=== PATIENT | male | born 1950 | race Caucasian/White ===

== ENCOUNTER 2017-07-10 23:47 | Observation (INO) | payer OTHER ==
[~2017-07-10] VITALS: Ht 170.2 cm; Wt 70.3 kg
--- NOTE | 2017-07-10 23:52 | ED CARDIAC/CP/PALPITATIONS ---
History of Present Illness General Chief Complaint: Chest Pain Stated Complaint: BIBA CHEST PAIN Source: patient Exam Limitations: no limitations Vital Signs & Intake/Output Vital Signs & Intake/Output Vital Signs Date Time Temp Pulse Resp B/P B/P Pulse O2 O2 Flow FiO2 Mean Ox Delivery Rate 07/11 0248 98.5 90 18 113/68 95 Room Air 07/10 2358 98.5 81 18 118/82 94 Room Air ED Intake and Output 07/11 0000 07/10 1200 Intake Total Output Total Balance Patient 155 lb Weight Weight Reported by Patient Measurement Method Allergies Coded Allergies: No Known Allergies (07/10/17) Reconcile Medications Aspirin (Aspirin*) 81 MG TAB.CHEW 81 MG PO DAILY HEART HEALTH (Reported) Budesonide/Formoterol Fumarate (Symbicort 160-4.5 Mcg Inhaler) 160 MCG-4.5 MCG/ ACTUATION HFA.AER.AD 2 INH IH DAILY ASTHMA (Reported) Ezetimibe (Zetia) 10 MG TABLET 10 MG PO DAILY CHOLESTEROL (Reported) Hydrochlorothiazide 12.5 MG CAPSULE 12.5 MG PO DAILY HTN (Reported) Tamsulosin HCl (Flomax) 0.4 MG CAP.ER.24H 0.4 MG PO DAILY URINARY SYMPTOMS ( Reported) Valsartan 80 MG TABLET 80 MG PO DAILY HTN (Reported) Triage Nurses Notes Reviewed? yes Onset: Gradual Duration: week(s): Timing: recent history Quality/Severity: moderate Location: central Radiation: no radiation Activities at Onset: emotional stress Prior Chest Pain/Card Workup: "My doctor has said I have had a heart attack." Modifying Factors: Improves With: nitroglycerin. Nitro Today/Relief: 0.4 mg x 2, provided by EMS, moderate relief Aspirin Today: 325 mg x 1, provided by EMS Associated Symptoms: dizziness HPI: 66 yo gentleman h/o cva and coronary artery disease, presents with 5/10 chest tightness, exacerbated by an argument with his son sesar. His chest tightness was associated with dizziness, without radiation or syncopal symptoms. 911 called. [facility] gave him aspirin 324mg x1 and nitro x 2, which he reports nearly resolved his symptoms. He reports feeling mild chest tightness upon arrival. Past History Travel History Traveled to [place] past 21 day No Medical History Any Pertinent Medical History? see below for history Neurological: CVA Cardiovascular: CAD Surgical History Surgical History: none Psychosocial History What is your primary language Angolan Family History Hx Contributory? No Review of Systems Review of Systems Constitutional: Reports: no symptoms. EENTM: Reports: no symptoms. Respiratory: Reports: no symptoms. Cardiovascular: Reports: no symptoms. GI: Reports: no symptoms. Genitourinary: Reports: no symptoms. Musculoskeletal: Reports: no symptoms. Skin: Reports: no symptoms. Neurological/Psychological: Reports: no symptoms. Hematologic/Endocrine: Reports: no symptoms. Immunologic/Allergic: Reports: no symptoms. All Other Systems: Reviewed and Negative Physical Exam Physical Exam General Appearance: well developed/nourished, mild distress Head: atraumatic, normal appearance Eyes: Bilateral: normal appearance. Ears, Nose, Throat: normal pharynx, normal ENT inspection Neck: normal inspection, supple, full range of motion Respiratory: normal breath sounds, chest non-tender, no respiratory distress, lungs clear Cardiovascular: regular rate/rhythm Gastrointestinal: normal bowel sounds, soft, non-tender Back: normal inspection, normal range of motion Extremities: normal inspection, normal capillary refill, normal range of motion, no edema Neurologic/Psych: no motor/sensory deficits, awake, alert, oriented x 3 Skin: intact, normal color, warm/dry Core Measures ACS in differential dx? Yes CVA/TIA Diagnosis No Sepsis Present: No Sepsis Focused Exam Completed? No Progress Differential Diagnosis: AMI, unstable angina Plan of Care: Orders Procedure Date/time Status Heart Healthy Diet 07/11 B Active TROPONIN LEVEL 07/11 1200 Active EKG 07/11 1200 Active TROPONIN LEVEL 07/11 0600 Active EKG 07/11 0600 Active Pathway - chart 07/11 0232 Active ECHOCARDIOGRAM 07/11 0232 Active Patient Data 07/11 0215 Active Patient Data 07/11 0214 Active Saline Lock 07/[address] in observation 07/11 0210 Active Misc Message 07/11 0210 Active ED Holding Orders 07/11 0210 Active Vital Signs 07/11 0210 Active Code Status 07/11 0210 Active Intake & Output 07/11 0010 Active House Staff 07/11 UNK Active VTE Mechanical Prophylaxis 07/11 UNK Active Vital Signs 07/11 UNK Active TROPONIN LEVEL 07/10 2352 Complete LIPASE 07/10 2352 Complete HEPATIC FUNCTION PANEL 07/10 2352 Complete D-DIMER 07/10 2352 Complete CBC WITHOUT DIFFERENTIAL 02/19 2352 Complete BASIC METABOLIC PANEL 07/10 2351 Complete AMYLASE 07/10 2351 Complete EKG 07/10 2351 Active Current Medications Sig/Tete Start time Last Medication Dose Stop Time Status Admin Heparin Sodium 5,000 UNIT Q8 07/11 0600 UNVr (Porcine) Laboratory Tests 07/11/17 0025: Anion Gap 18 H, Estimated GFR > 60, BUN/Creatinine Ratio 28.6 H, Glucose 105 H, Calcium 9.0, Total Bilirubin 0.3, Direct Bilirubin 0.2, AST 36, ALT 42, Alkaline Phosphatase 91, Troponin I < 0.01, Total Protein 6.8, Albumin 4.1, Amylase 72, Lipase 102, D-Dimer High Sensitivty 224, CBC w Diff NO MAN DIFF REQ, RBC 4.20 L, MCV 94.0, MCH 32.0 H, MCHC 34.0, RDW 13.1, MPV 8.1, Gran % 51.1, Lymphocytes % 32.5, Monocytes % 11.5 H, Eosinophils % 4.1, Basophils % 0.8, Absolute Granulocytes 2.4, Absolute Lymphocytes 1.5, Absolute Monocytes 0.5, Absolute Eosinophils 0.2, Absolute Basophils 0 Diagnostic Imaging: Viewed by Me: Radiology Read. Discussed w/RAD: Radiology Read. CXR Impression: PATIENT: SHAAN ZIEGLER PRESENT AGE: 66 PATIENT ACCOUNT NO: [id number] : 51 LOCATION: [facility] ORDERING PHYSICIAN: Elie Jones MD SERVICE DATE: 07/11/17 EXAM TYPE: RAD - XRY-PORTABLE CHEST XRAY EXAMINATION: XR PORTABLE CHEST CLINICAL INFORMATION: Chest pain COMPARISON: 11/02/2008 TECHNIQUE: Portable frontal view of the chest was obtained. FINDINGS: Cardiac Loop recorder overlies the left hemithorax. The lungs are well expanded. There is no focal consolidation, edema, or effusion. No pneumothorax. The cardiomediastinal silhouette is within normal limits. No acute osseous abnormality. IMPRESSION: No acute pulmonary findings. DICTATED BY: Willem Fontaine MD DATE/TIME DICTATED:07/11/17100 CORE MAN:MARCIAL DATE/TIME TRANSCRIBED:07/11/17100 CONFIDENTIAL, DO NOT COPY WITHOUT APPROPRIATE AUTHORIZATION. <Electronically signed in Other Vendor System> SIGNED BY: Willem Fontaine MD 07/11/17 0105 Pre-Hospital EKG: normal axis, normal intervals, nonspecific ST T wave chg Initial ED EKG: normal axis, normal intervals, nonspecific ST T wave chg Departure Departure Disposition: STILL A PATIENT Condition: Stable Clinical Impression Primary Impression: Chest pain Referrals: Lloyd Decker MD,Joel Lr Departure Forms: Customer Survey General Discharge Information Observation Note Spoke With: Jess[facility] RODRIGUEZ PHD,[facility] Patient In: Non-ED OBS Care Area Rationale for Observation: My rational for observation is as follows . pt with nitro responsive chest pain with vascular history... merits serial trops /ekg, dr. schilling to evaluate in the morning. Critical Care Note Critical Care Note Critical Care Time: 30-74 min
[2017-07-11 00:58] LABS: ABSOLUTE BASOPHIL COUNT 0 /CUMM (0.0-0.2); ABSOLUTE EOSINOPHIL COUNT 0.2 /CUMM (0.0-0.7); ABSOLUTE GRANULOCYTE CT 2.4 /CUMM (1.4-6.5); ABSOLUTE LYMPH COUNT 1.5 /CUMM (1.2-3.4); ABSOLUTE MONOCYTE COUNT 0.5 /CUMM (0.10-0.60); BASOPHIL % 0.8 % (0.0-2.0); EOSINOPHIL % 4.1 % (0-5); GRANULOCYTE % 51.1 % (42.2-75.2); HEMATOCRIT 39.5 % (42-52); MEAN PLATELET VOLUME 8.1 FL (7.4-10.4); PLATELET COUNT 209 /CUMM (130-400); RBC DISTRIBUTION WIDTH 13.1 % (11.5-14.5); WHITE BLOOD CELL COUNT 4.8 /CUMM (4.8-10.8)
--- NOTE | 2017-07-11 01:05 | RADIOLOGY REPORT ---
EXAMINATION: XR PORTABLE CHEST CLINICAL INFORMATION: Chest pain COMPARISON: 11/02/2008 TECHNIQUE: Portable frontal view of the chest was obtained. FINDINGS: Cardiac Loop recorder overlies the left hemithorax. The lungs are well expanded. There is no focal consolidation, edema, or effusion. No pneumothorax. The cardiomediastinal silhouette is within normal limits. No acute osseous abnormality. IMPRESSION: No acute pulmonary findings.
--- NOTE | 2017-07-11 02:15 | History & Physical ---
Walter Davis MDapna 07/11/17 0215: General Information and HPI MD Statement: I have seen and personally examined SHAAN ZIEGLER and documented this H&P. The patient is a 66 year old M who presented with a patient stated chief complaint of [chest pain]. Source of Information: patient, family Exam Limitations: no limitations History of Present Illness: 66-year-old gentleman with past medical history of TIA, coronary artery disease, psoriasis, asthma, GERD came to [facility] with complaints of anxiety, chest pain with palpitation. Patient was in usual state of health until a week ago, started developing intermittent chest pain of 3 x 10 in severity radiating across his chest relieved by rest. This chest pain is also associated with shortness of breath and palpitation. He denied nausea, vomiting, syncope, fall, abdominal pain, weakness, fever, chills, sick contacts, orthopnea, platypnea, travel. Earlier tonight patient had argument with his son and eventually had to call 911. When the 911 came in. He was found to be very anxious and suggested him to go to ER. During the same time patient developed similar chest pain of 3 -4 x 10 in severity associated with palpitation and not relieved by rest. He denies left arm pain, jaw pain, nausea, vomiting, abdominal pain, hematuria, dysuria, fever, chills, upper respiratory symptoms, decreased urination, orthopnea, lower leg edema, fall, altered sensation, seizure-like episode. Patient has a loop monitor placed 5 years ago. This was replaced a year ago. Patient sees Dr. delarosa for his cardiology issues. Patient had a nitroglycerin patch and Ativan which helped with his chest pain. Patient has chronic cough which she relates to his GERD. No history of any increased salt intake/pedal edema. Allergies/Medications Allergies: Coded Allergies: No Known Allergies (07/10/17) Home Med list Alendronate Sodium 70 MG TABLET 1 TAB PO QFRI OSTEOPOROSIS (Reported) in the morning, at least 30 minutes before the first food, beverage, or medication of the day Aspirin (Aspirin*) 81 MG TAB.CHEW 81 MG PO DAILY HEART HEALTH (Reported) Atorvastatin Calcium 80 MG TABLET 1 TAB PO DAILY CHOLESTROL (Reported) Budesonide/Formoterol Fumarate (Symbicort 160-4.5 Mcg Inhaler) 160 MCG-4.5 MCG/ ACTUATION HFA.AER.AD 2 INH IH DAILY ASTHMA (Reported) Ezetimibe (Zetia) 10 MG TABLET 10 MG PO DAILY CHOLESTEROL (Reported) Hydrochlorothiazide 12.5 MG CAPSULE 12.5 MG PO DAILY HTN (Reported) Montelukast Sodium (Singulair) 10 MG TABLET 1 TAB PO DAILY ASTHMA (Reported) Tamsulosin HCl (Flomax) 0.4 MG CAP.ER.24H 0.4 MG PO DAILY URINARY SYMPTOMS ( Reported) Valsartan 80 MG TABLET 80 MG PO DAILY HTN (Reported) Compliance With Home Meds: GOOD Past History Travel History Traveled to [facility] past 21 day No Medical History Cardiovascular: CAD Respiratory: asthma Hepatic: NONE Renal: NONE Musculoskeletal: NONE Surgical History Surgical History: hernia repair-inguinal Past Family/Social History Family History Relations & Conditions if any MOTHER Relation not specified for: FHx: breast cancer Psychosocial History Where do you live? Home Who Do You Live With? spouse Services at Home: None Primary Language: Sammarinese ETOH Use: occasional use Illicit Drug Use: denies illicit drug use Functional Ability ADLs Independent: dressing, eating, toileting, bathing. Ambulation: independent IADLs Independent: shopping, housework, finances, food prep, telephone, transportation , medication admin. Review of Systems Review of Systems Constitutional: Reports: malaise. EENTM: Reports: no symptoms. Cardiovascular: Reports: chest pain, palpitations. Respiratory: Reports: short of breath. GI: Reports: no symptoms. Genitourinary: Reports: no symptoms. Musculoskeletal: Reports: no symptoms. Skin: Reports: no symptoms. Exam & Diagnostic Data Last 24 Hrs of Vital Signs/I&O Vital Signs Date Time Temp Pulse Resp B/P B/P Pulse O2 O2 Flow FiO2 Mean Ox Delivery Rate 07/11 0248 98.5 90 18 113/68 95 Room Air 07/10 2358 98.5 81 18 118/82 94 Room Air Intake & Output 07/11 0800 07/11 0000 07/10 1600 Intake Total 0 Output Total Balance 0 Intake, Oral 0 Patient 155 lb Weight Weight Reported by Patient Measurement Method Physical Exam General Appearance Alert, Oriented X3, Cooperative, No Acute Distress Skin No Rashes, No Breakdown, No Significant Lesion HEENT Atraumatic, PERRLA, EOMI Cardiovascular Regular Rate, Normal S1, Normal S2, No Murmurs Lungs Clear to Auscultation, Normal Air Movement Abdomen Soft, No Tenderness, No Hepatospenomegaly Neurological Normal Speech, Strength at 5/5 X4 Ext, Normal Tone, Sensation Intact Extremities No Edema Last 24 Hrs of Labs/Kalpesh: Laboratory Tests 07/11/17 0025: Anion Gap 18 H, Estimated GFR > 60, BUN/Creatinine Ratio 28.6 H, Glucose 105 H, Calcium 9.0, Total Bilirubin 0.3, Direct Bilirubin 0.2, AST 36, ALT 42, Alkaline Phosphatase 91, Troponin I < 0.01, Total Protein 6.8, Albumin 4.1, Amylase 72, Lipase 102, D-Dimer High Sensitivty 224, CBC w Diff NO MAN DIFF REQ, RBC 4.20 L, MCV 94.0, MCH 32.0 H, MCHC 34.0, RDW 13.1, MPV 8.1, Gran % 51.1, Lymphocytes % 32.5, Monocytes % 11.5 H, Eosinophils % 4.1, Basophils % 0.8, Absolute Granulocytes 2.4, Absolute Lymphocytes 1.5, Absolute Monocytes 0.5, Absolute Eosinophils 0.2, Absolute Basophils 0 Diagnostic Data EKG Results Sinus rhythm with a normal axis. Assessment/Plan Assessment: 66-year-old gentleman with past medical history of TIA, coronary artery disease, psoriasis, asthma, GERD came to [facility] ER with complaints of anxiety, chest pain with palpitation. Admission vitals Temperature 98.5, pulse rate 90, respiratory rate 18, blood pressure 113/68, saturation 94 at room air Admission labs WBC 4.8, hemoglobin 13.4, platelets 209, sodium 146, potassium 3.6, BUNs 20 creatinine 0.7 Imaging chest x-ray IMPRESSION: No acute pulmonary findings. ED treatment Tylenol 650 mg once, Ativan 0.5 mg by mouth, Nitro-Bid 1 g topical. Assessment and plan 1. Chest pain-rule out ACS We will place him under observation in telemetry. Serial troponins and EKG to rule out acute coronary syndrome. He is course 2 in DONTAE. Cardiology consult and echocardiogram in a.m. Continue all his home medication. 2. GERD Continue PPI 3. Hypertension Continue losartan and hydrochlorothiazide his home dose. 4. Osteoporosis Continue AlENDRONATE 70 mg once every week 5. Benign prostatitic hypertrophy Continue Flomax. 6. Asthma continue Symbicort and Singulair Diet-heart healthy diet Code-full code DVT prophylaxis-heparin subcutaneous As Ranked By This Provider Problem List: 1. Chest pain Core Measures/Misc (02/05) Acute Coronary Syndrome ACS Diagnosis: No Congestive Heart Failure Congestive Heart Failure Diagnosis No Cerebrovascular Accident CVA/TIA Diagnosis: No VTE (View Protocol) VTE Risk Factors Age>40 No Mechanical VTE Prophylaxis d/t Other No VTE Pharm Prophylaxis d/t Other Sepsis (View protocol) Sepsis Present: No Allie Johnson 07/11/17 0217: Resident Review Statement Resident Statement: examined this patient, discussed with post graduate internship, agreed with post graduate internship, discussed with family, reviewed EMR data (avail), discussed with nursing , discussed with case mgmt, reviewed images, amended to note Other Findings: 66-year-old male with a history of CVA, asthma, ? CAD, BPH, HLP, osteoporosis, psoriasis presented to the ED with complains of chest tightness which he grades as a 5 out of 10 which is exacerbated after an emotional outburst while he was in an argument with his son last night. Ranging to the patient she's been having intermittent episodes of chest tightness that he describes as "band like" across the entire chest. He states that he's been under a lot of stress emotionally and was in an argument with his son earlier this evening. He denies any radiation of pain or discomfort to the neck or pain down his arm. He denies any nausea, vomiting, diaphoresis however does endorse palpitations. He denies any recent upper respiratory tract infection. Of note he's cut significant acid reflux and GERD which she will stop seen Dr. Moore in the past. Patient denies any orthopnea, PND and states that he is pretty much compliant in terms of what he eats. He does not smoke however does endorse drinking alcohol a glass of wine on a daily basis. Patient states that about 5 years ago he had TIA or stroke after which he underwent a loop recorder which was replaced last year and reportedly nothing has been recorded normally. His review of systems otherwise is unremarkable. He states that his chest pain does not really occur in exertion that is physical however is triggered by emotional outbursts. He does endorse feeling better after he received sublingual nitroglycerin in the ER. Patient follows up with Dr. Harvey. He is scheduled to see him in September 2017. Chest tightness was associated with dizziness, without any radiation sequela consult. End that he received aspirin 324 mg 1 and nitroglycerin 2 which resolved his symptoms. Vitals at the time of admission blood pressure 118/82, respiratory rate of 18, pulse 81, afebrile saturating 94% on room air. On physical exam he is alert, oriented 3 and in no acute distress lying comfortably in bed. HEENT revealed her left, moist mucous membranes. Examination of the neck did not reveal an elevated JVD or cervical lymphadenopathy. Cardiovascular exam pertinent for normal S1, S2, no murmurs rubs or gallops appreciated. Chest was clear to auscultation bilaterally. Abdominal exam was benign with abdomen soft, nontender, nondistended with normal bowel sounds in all 4 quadrants. Examination of the lower extremities reveal trace edema bilaterally. Neuro exam was grossly unremarkable with slight decreased strength in the left hand more so because of history of osteoarthritis. Labs pertinent for a white blood cell count of 4800, H&H of 13.4/39.5, normal MCV of 94. Platelet count of 29. Serum chemistries pertinent for a 146, potassium of 3.6, bicarbonate 24, elevated anion gap of 18 BUN 20 and creatinine of 0.7. Serum glucose 105. LFTs unremarkable with a total bili of 0.3, AST/L2- 3 6/42, alkaline phosphatase of 91 with firs set of trop less than 0.01. D-Dimer :224 CXR: Cardiac Loop recorder overlies the left hemithorax. The lungs are well expanded. There is no focal consolidation, edema, or effusion. No pneumothorax. EKG revealed: Normal sinus rhythm with a heart rate 72, normal axis, nonspecific ST-T changes in V2, ND interval of 148. In [facility] ER he received Nitro bid past, Ativan 0.5mg X1, tylenol Assessment and plan Place under observation on Telelmetry. #Atypical chest pain - His DONTAE score is 2 (8% risk of MACE at 14 days) - Will trend troponin and ECG @ 6:00am and 12:00pm - Of note patient endorses his chest pain was relieved on taking Nitro x2 - Echo To r/o RWMA. - Meawnhile start on ASA, high dose statin - F/U lipid panel - F/U cardio recs (Dr. Haas's group) - Consider stress test as an OP. #HTN Continue Losartan 25mg daily, HCTZ 12.5mg daily #Asthma Continue Symbicort, Singulair #GERD - Continue Protonix 40mg daily. #HLP - Continue Zetia and high dose statin #Osteoporosis - Continue Alendronate 70mg q Monday #BPH - Continue on Tamsulosin 0.4mg daily - DVT prophylaxis - 5000IU TID SC - Diet - Heart healthy - Code Status - Full Code.
[2017-07-11] MEDS ORDERED: VALSARTAN80 M1 PO (02:38)
[2017-07-11] MEDS ORDERED: ASPIRIN81 M4 PO (02:39)
[2017-07-11] MEDS ORDERED: HYDROCHLOROTH12.5 M3 PO (02:39)
[2017-07-11] MEDS ORDERED: ZETIA10 M1 PO (02:41)
[2017-07-11] MEDS ORDERED: SYMBICORT 16010.2 GM IH (02:42)
[2017-07-11] MEDS ORDERED: FLOMAX0.4 M1 PO (02:44)
[2017-07-11] MEDS ORDERED: SINGULAIR10 M1 PO (03:41)
[2017-07-11] MEDS ORDERED: ATORVASTATIN CA80 M1 PO (03:42)
[2017-07-11] MEDS ORDERED: ALENDRONATE SOD70 M2 PO (03:42)
[2017-07-11 10:33] VITALS: BP 102/64
--- NOTE | 2017-07-11 10:41 | Cons- Cardiology ---
General Information and HPI Consulting Request Date of Consult: 07/11/17 Requested By: Dannie RODRIGUEZ,Janak Redman Reason for Consult: Chest pain Source of Information: patient, family Exam Limitations: no limitations History of Present Illness: The patient is a 66-year-old male followed by Dr. Harvey with a history of cryptogenic stroke with implantation of a loop recorder, hypertension, hyperlipidemia, GERD, who now presents with chest discomfort. Patient states that he has had intermittent episodes of bandlike chest discomfort for the past 2 weeks. This is exacerbated by stress that he is undergoing due to his son's drug problem. He denies chest pain with exertion. The chest pain is intermittently associated with shortness of breath but denies nausea vomiting or diaphoresis. On the day of presentation the patient got into an argument again with the son developed chest discomfort. 911 was called for his son but they found the patient to be diaphoretic and anxious. I recommended that he go to the emergency room for evaluation. The patient received nitroglycerin and Ativan with improvement in his discomfort. The patient had a recent nuclear stress test performed in 2016 demonstrated normal LV function and no evidence for ischemia. Recent echocardiogram performed also in 2016 demonstrated normal ejection fraction and no wall motion abnormalities. 66-year-old gentleman with past medical history of TIA, coronary artery disease, psoriasis, asthma, GERD came to [facility] with complaints of anxiety, chest pain with palpitation. Patient was in usual state of health until a week ago, started developing intermittent chest pain of 3 x 10 in severity radiating across his chest relieved by rest. This chest pain is also associated with shortness of breath and palpitation. He denied nausea, vomiting, syncope, fall, abdominal pain, weakness, fever, chills, sick contacts, orthopnea, platypnea, travel. Earlier tonight patient had argument with his son and eventually had to call 911. When the 911 came in. He was found to be very anxious and suggested him to go to ER. During the same time patient developed similar chest pain of 3 -4 x 10 in severity associated with palpitation and not relieved by rest. He denies left arm pain, jaw pain, nausea, vomiting, abdominal pain, hematuria, dysuria, fever, chills, upper respiratory symptoms, decreased urination, orthopnea, lower leg edema, fall, altered sensation, seizure-like episode. Patient has a loop monitor placed 5 years ago. This was replaced a year ago. Patient sees Dr. delarosa for his cardiology issues. Patient had a nitroglycerin patch and Ativan which helped with his chest pain. Patient has chronic cough which she relates to his GERD. No history of any increased Allergies/Medications Allergies: Coded Allergies: No Known Allergies (07/10/17) Home Med List: Alendronate Sodium 70 MG TABLET 1 TAB PO QFRI OSTEOPOROSIS (Reported) in the morning, at least 30 minutes before the first food, beverage, or medication of the day Aspirin (Aspirin*) 81 MG TAB.CHEW 81 MG PO DAILY HEART HEALTH (Reported) Atorvastatin Calcium 80 MG TABLET 1 TAB PO DAILY CHOLESTROL (Reported) Budesonide/Formoterol Fumarate (Symbicort 160-4.5 Mcg Inhaler) 160 MCG-4.5 MCG/ ACTUATION HFA.AER.AD 2 INH IH DAILY ASTHMA (Reported) Ezetimibe (Zetia) 10 MG TABLET 10 MG PO DAILY CHOLESTEROL (Reported) Hydrochlorothiazide 12.5 MG CAPSULE 12.5 MG PO DAILY HTN (Reported) Montelukast Sodium (Singulair) 10 MG TABLET 1 TAB PO DAILY ASTHMA (Reported) Tamsulosin HCl (Flomax) 0.4 MG CAP.ER.24H 0.4 MG PO DAILY URINARY SYMPTOMS ( Reported) Valsartan 80 MG TABLET 80 MG PO DAILY HTN (Reported) Current Medications: Current Medications Sig/Tete Start time Last Medication Dose Route Stop Time Status Admin Acetaminophen 0 .STK-MED ONE 07/11 0020 DC PO Acetaminophen 650 MG ONCE ONE 07/10 2345 DC 07/11 PO 07/10 2346 0047 Alendronate Sodium 70 MG QFRI 07/14 0700 AC PO Aspirin 0 .STK-MED ONE 07/11 1034 DC PO Aspirin 81 MG DAILY 07/11 1000 AC 07/11 PO 1033 Atorvastatin Calcium 80 MG 1700 07/11 1700 AC PO Budesonide/ 2 PUF BID 07/11 1000 AC 07/11 Formoterol Fumarate INH 1033 Ezetimibe 10 MG DAILY 07/11 1000 AC 07/11 PO 1033 Heparin Sodium 0 .STK-MED ONE 07/11 0613 DC (Porcine) .ROUTE Heparin Sodium 5,000 UNIT Q8 07/11 0600 AC 07/11 (Porcine) SC 0618 Hydrochlorothiazide 12.5 MG DAILY 07/11 1000 AC 07/11 PO 1033 Lorazepam 0 .STK-MED ONE 07/11 0019 DC PO Lorazepam 0.5 MG ONE ONE 07/10 2345 DC 07/11 PO 07/10 2346 0047 Losartan Potassium 25 MG DAILY 07/11 1000 AC 07/11 PO 1033 Montelukast Sodium 10 MG 2200 07/11 2200 AC PO Nitroglycerin 0.4 MG Q 5 MINUTES X 3 DO.. 07/11 0445 AC SL Nitroglycerin 0 .STK-MED ONE 07/11 0020 DC [facility] Nitroglycerin 1 GM ONCE ONE 07/10 2345 DC 07/11 TOP 07/10 234 0047 Tamsulosin HCl 0.4 MG DAILY 07/11 1000 AC 07/11 PO 1033 Review of Systems Review of Systems: Eyes no blurred or double vision Ears no deafness or ringing Nose and throat no recurrent sinusitis Lungs per history of present illness Heart per history of present illness Abdomen no nausea vomiting Musculoskeletal occasional muscle and joint pains Psych no anxiety or depression Neuro without recurrent headache or seizures Endocrine no heat or cold intolerance Past History Travel History Traveled to [place] past 21 day No Medical History Neurological: CVA Cardiovascular: CAD Respiratory: asthma Hepatic: NONE Renal: NONE Musculoskeletal: NONE Surgical History Surgical History: hernia repair-inguinal Family History Relations & Conditions If Any: MOTHER Relation not specified for: FHx: breast cancer Psychosocial History Where Do You Live? Home Who Do You Live With? spouse Services at Home: None Primary Language: Georgian ETOH Use: occasional use Illicit Drug Use: denies illicit drug use Functional Ability ADLs Independent: dressing, eating, toileting, bathing. Ambulation: independent IADLs Independent: shopping, housework, finances, food prep, telephone, transportation , medication admin. Exam & Diagnostic Data Vital Signs and I&O Vital Signs Date Time Temp Pulse Resp B/P B/P Pulse O2 O2 Flow FiO2 Mean Ox Delivery Rate 07/11 1033 98.0 77 18 102/64 07/11 1033 98.0 77 18 102/64 07/11 0601 98.0 77 18 102/64 95 Room Air 07/11 0248 98.5 90 18 113/68 95 Room Air 07/10 2358 98.5 81 18 118/82 94 Room Air Intake & Output 07/11 1600 07/11 0800 07/11 0000 07/10 1600 07/10 0800 07/10 0000 Intake Total 0 Output Total Balance 0 Intake, Oral 0 Patient 155 lb Weight Weight Reported by Patient Measurement Method Physical Exam: Patient is a well-developed well-nourished male appearing in no acute distress HEENT is unremarkable Neck is supple there is no JVD Lungs are clear Heart regular rhythm S1 and S2 are normal no murmurs gallops or rubs Abdomen bowel sounds positive Extremities without edema Labs/Kalpesh Results: Laboratory Tests 07/11 07/11 07/11 0615 0500 0025 Chemistry Sodium (137 - 145 mmol/L) 146 H Potassium (3.5 - 5.1 mmol/L) 3.6 Chloride (98 - 107 mmol/L) 104 Carbon Dioxide (22 - 30 mmol/L) 24 Anion Gap (5 - 16) 18 H BUN (9 - 20 mg/dL) 20 Creatinine (0.7 - 1.2 mg/dL) 0.7 Estimated GFR (>60 ml/min) > 60 BUN/Creatinine Ratio (7 - 25 %) 28.6 H Glucose (65 - 99 mg/dL) 105 H Calcium (8.4 - 10.2 mg/dL) 9.0 Total Bilirubin (0.2 - 1.3 mg/dL) 0.3 Direct Bilirubin (< 0.4 mg/dL) 0.2 AST (17 - 59 U/L) 36 ALT (21 - 72 U/L) 42 Alkaline Phosphatase (< 127 U/L) 91 Troponin I (<0.11 ng/ml) < 0.01 < 0.01 Total Protein (6.3 - 8.2 g/dL) 6.8 Albumin (3.5 - 5.0 g/dL) 4.1 Triglycerides (<150 mg/dL) 180 H Cancelled Cholesterol (< 200 MG/DL) 165 Cancelled LDL Cholesterol, Calc (65 - 129 mg/dL) 33 L Cancelled HDL Cholesterol (40 - 60 mg/dL) 96 H Cancelled Cholesterol/HDL Ratio (0.00 - 4.88 %) 2 Cancelled Amylase (30 - 110 U/L) 72 Lipase (23 - 300 U/L) 102 Coagulation D-Dimer High Sensitivty (0 - 243 ng/ml) 224 Hematology CBC w Diff NO MAN DIFF REQ WBC (4.8 - 10.8 /CUMM) 4.8 RBC (4.70 - 6.10 /CUMM) 4.20 L Hgb (14.0 - 18.0 G/DL) 13.4 L Hct (42 - 52 %) 39.5 L MCV (80.0 - 94.0 FL) 94.0 MCH (27.0 - 31.0 PG) 32.0 H MCHC (33.0 - 37.0 G/DL) 34.0 RDW (11.5 - 14.5 %) 13.1 Plt Count (130 - 400 /CUMM) 209 MPV (7.4 - 10.4 FL) 8.1 Gran % (42.2 - 75.2 %) 51.1 Lymphocytes % (20.5 - 51.1 %) 32.5 Monocytes % (1.7 - 9.3 %) 11.5 H Eosinophils % (0 - 5 %) 4.1 Basophils % (0.0 - 2.0 %) 0.8 Absolute Granulocytes (1.4 - 6.5 /CUMM) 2.4 Absolute Lymphocytes (1.2 - 3.4 /CUMM) 1.5 Absolute Monocytes (0.10 - 0.60 /CUMM) 0.5 Absolute Eosinophils (0.0 - 0.7 /CUMM) 0.2 Absolute Basophils (0.0 - 0.2 /CUMM) 0 Diagnostic Data EKG Results Sinus rhythm normal CXR Results IMPRESSION: No acute pulmonary findings. Assessment/Plan Assessment/Plan 1. Atypical chest pain is most likely secondary to stress. His EKG is normal and his troponins are negative effectively ruling out a myocardial infarction. Sign 2. Hypertension 3. Hyperlipidemia 4. Cryptogenic stroke with implantable loop recorder in place 5. Hypertension Recommendations 1. Since patient is currently stable and has ruled out for myocardial infarction and feel that the patient can be discharged home with outpatient stress test and echocardiogram 2. I would continue his current medications Thank you for allowing [facility] to participate in the care of your patient. Consult Acknowledgment - Thank you for your consult request.
--- NOTE | 2017-07-11 10:48 | Patient Discharge Instructions ---
Discharge Instructions General Discharge Information You were seen/treated for: Chest pain Special Instructions: You need to stress test and echocardiogram as an outpatient. 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 Please come back to ED if you again developed the chest pain. Please follow-up with your PCP within a week of discharge. Diet Recommended Diet: Heart Healthy Activity Full Activity/No Limits: No (as tolerated) Acute Coronary Syndrome Inclusion Criteria At DC or during hospital stay patient has or had the following: ACS DIAGNOSIS No Discharge Core Measures Meds if any: Prescribed or Continued at Discharge Meds if any: NOT Prescribed or Continued at Discharge Congestive Heart Failure Inclusion Criteria At DC or during hospital stay patient has or had the following: CHF DIAGNOSIS No Discharge Core Measures Meds if any: Prescribed or Continued at Discharge Meds if any: NOT Prescribed or Continued at Discharge Cerebrovascular accident Inclusion Criteria At DC or during hospital stay patient has or had the following: CVA/TIA Diagnosis No Discharge Core Measures Meds if any: Prescribed or Continued at Discharge Meds if any: NOT Prescribed or Continued at Discharge Venous thromboembolism Inclusion Criteria VTE Diagnosis No VTE Type NONE VTE Confirmed by (Test) NONE Discharge Core Measures - Per Current guidelines, there needs to be overlap - treatment for the first 5 days of Warfarin therapy. - If discharged on Warfarin prior to 5 days of - overlap therapy, the patient will need to be - assessed for post discharge needs including - *Post discharge parental anticoagulation - *Warfarin and/or parental anticoagulation education - *Follow up date to check INR post discharge At least 5 days overlap therapy as Inpatient No Meds if any: Prescribed or Continued at Discharge Note: Overlap Therapy is Warfarin and Anticoagulant Meds if any: NOT Prescribed or Continued at Discharge
== END 2017-07-11 11:53 ==
LOC: ERH 23:47 → ERHI 07-11 02:37
PROVIDERS: Internal Medicine Infectious Disease; Pediatrics
DX: R07.9 Chest pain, unspecified (principal); Z79.82 Long term (current) use of aspirin; Z86.73 Personal history of transient ischemic attack (TIA), and cerebral infarction without residual deficits; I25.10 Atherosclerotic heart disease of native coronary artery without angina pectoris
CPT/HCPCS: 6090; 71045; 93005; 93010; 96372; G0378; J1644; J3490